=== PATIENT | female | born 1950 | race Caucasian/White ===

== ENCOUNTER 2021-04-28 09:54 | Inpatient (IN) | payer MEDICARE, OTHER, SELFPAY ==
[2021-04-28] VITALS (9 sets, daily range): BP systolic 131–184; BP diastolic 79–105; PULSE 88–120; RESP 15–18; O2SAT 91–97; BMI 21.5
--- NOTE | 2021-04-28 09:55 | CT_ITS ---
WS: [id number] CT HEAD NONCONTRAST HISTORY: POSSIBLE STROKE TECHNIQUE: Contiguous axial imaging performed through the brain in 2.5 mm imaging. Bone and soft tiss ue windows. Sagittal and coronal reformats reviewed. All CT scans at [facility] use at least one of these dose optimization techniques: automated exposure control; mA and/or kV adjustment per pa tient size (includes targeted exams where dose is matched to clinical indication); or iterative recon struction. DLP: 879.20 mGy-cm. COMPARISON: None available. No acute intracranial hemorrhage, midline shift or mass effect. Mild atrophy is symmetric. Prior lacunar infarct in the LEFT baldwin radiata. Decreased attenuation in the posterior limb of the LEFT internal capsule could be a subacute infarct. Tiny lacunar infarct or perivascular space along the inferior RIGHT basal ganglia. Decreased attenuation from microvascular ischemic disease along the insular ribbons and external capsules. Ventricles: Normal size with no hydrocephalus. Scattered calcified plaque within the intracranial carotid arteries. There is mild increased density within the cerebral arteries but this is diffuse and I cannot confirm an acute thrombus within the ce rebral arteries on this examination. CT angiogram to follow. Paranasal sinuses: As visualized are clear. Mastoid air cells: Well pneumatized. Calvarium and scalp: Skull is intact with no soft tissue edema or swelling. CT/CT head wo con* [id number] IMPRESSION: 1. No acute intracranial hemorrhage or edema. 2. Mild atrophy and chronic ischemic disease and prior lacunar infarcts as abo ve. Notified Deangelo Cruz DO at 04/28/2021 10:20 AM.
--- NOTE | 2021-04-28 09:55 | CT_ITS ---
WS: [id number] CT ANGIOGRAM CEREBRAL AND CAROTID ARTERIES HISTORY: POSSIBLE STROKE TECHNIQUE: CT angiogram is performed of the carotid and cerebral arteries. During arterial injection imaging is obtained from the skull vertex to the aortic arch in 1.25 mm imaging. Coronal and sagittal reformats are submitted. Additional multi planar reformats of the carotid and cerebral arteries are submitted, MIP imaging also reviewed. NASCET criteria utilized. [facility] CT [facility] us e at least one of these dose optimization techniques: automated exposure control; mA and/or kV adjust ment per patient size (includes targeted exams where dose is matched to clinical indication); or iter ative reconstruction. CONTRAST: Visipaque 320; 95 mL IV. DLP: 1857.7 mGy.cm COMPARISON: Noncontrast head CT same day. Carotid Angiogram: Right carotid: Common carotid artery: Arises normally from the innominate artery. There is a very small amount of ca lcified plaque at the origin of the common carotid artery. Internal carotid artery: No plaque or stenosis. External carotid artery: Patent. Left carotid: Common carotid artery: Arises at the base of the aorta. No significant stenosis. Internal carotid artery: Sharp band the internal carotid artery with very slight narrowing of the lum en. External carotid artery: Patent. Right vertebral artery: RIGHT vertebral artery is patent and mildly dominant. Left vertebral artery: Unremarkable. Arises normally from the subclavian artery. Subclavian arteries: No stenosis or significant abnormality. Upper thorax: Chronic emphysema. Thyroid gland: RIGHT thyroidectomy. Small subcentimeter nodules in the LEFT remaining thyroid. Osseous structures: Unremarkable. CEREBRAL ANGIOGRAM: Intracranial vertebral arteries: Normal with no significant atherosclerosis. Basilar artery: No significant stenosis or occlusion. No aneurysm. Intracranial Internal carotid arteries: Mild calcified plaque through the cavernous sinuses and supra clinoid carotid arteries. Middle cerebral arteries: Middle cerebral arteries are patent. The RIGHT middle cerebral artery diame ter is slightly greater than the LEFT but there is no thrombus. Good visualization of the M2 and M3 v ertebral arteries. M1 segments are patent. Anterior cerebral arteries and ACOM: Normal. Posterior cerebral arteries and PCOM's: Normal. Dural venous sinuses are normally enhancing. Small caliber LEFT jugular vein. Mastoid air cells: Normal. Paranasal sinuses: Normal. Calvarium: Normal. CT/CT angio headneck* [id number] IMPRESSION: 1. No significant carotid artery stenosis. There is a sharp bend in the mid LE FT extracranial carotid artery but this is a normal anatomic variant. 2. No significant thrombus or narrowing or spasm in the middle cerebral arteri es. No intracranial cerebral artery thrombus.
[2021-04-28] MEDS: hydrocortisone 100 mg/2 mL SDV IVP (10:08)
[2021-04-28] MEDS: diphenhydrAMINE 50 mg/mL SDV 1mL IVP (10:08)
[2021-04-28] MEDS: iodixanol 320 mg/mL 100mL Btl IV (10:15)
--- NOTE | 2021-04-28 10:18 | ECG_ITS ---
[facility] Test Date: 2021-04-28 Pat Name: Kayla Tobar Department: Room: Gender: Female Software Lead: : 1950 Requested By: Deangelo Reina Order Number: [id number] Tati MD: Romel Yoder M.D. Measurements Intervals [place] Rate: 95 P: 72 MN: 167 QRS: -36 QRSD: 90 T: 68 QT: 365 QTc: 460 Interpretive Statements SINUS RHYTHM POSSIBLE RIGHT ATRIAL ENLARGEMENT [0.25mV P-WAVE] LEFT ATRIAL ENLARGEMENT [-0.15mV P-WAVE IN V1/V2] LEFT AXIS DEVIATION [QRS AXIS < -30] POSSIBLE RIGHT VENTRICULAR CONDUCTION DELAY [RSR (QR) IN V1/V2] No previous ECG available for comparison Electronically Signed On 04-28-2021 17:46:55 SAMPLE CHECKER by Romel Yoder M.D. [id number]
[2021-04-28 10:27] LABS: Basophils # 0.1 10^3/uL (0.0-0.1); Basophils % 0.6 %; Hematocrit 50.4 % (37.0-47.0); Hemoglobin 16.8 g/dL (11.5-15.3); Lymphocytes # 1.7 10^3/uL (0.8-4.8); Lymphocytes % 13.5 %; Mean Corpuscular HGB Conc 33.3 g/dL (30.0-36.0); Mean Corpuscular Hemoglobin 29.4 pg (28.0-34.0); Mean Corpuscular Volume 88.1 fl (81-99); Mean Platelet Volume 10.4 fL (7.4-10.4); Monocytes # 0.7 10^3/uL (0.2-0.9); Monocytes % 5.6 %; Neutrophils # 10.16 10^3/uL (1.8-7.7); Neutrophils % 79.9 %; Nucleated Red Blood Cells % 0 %; Platelet Count 394 10^3/cmm (130-400); Red Blood Count 5.72 10^6/uL (4.1-5.3); Red Cell Distribution Width 12.9 % (12.1-15.1); White Blood Count 12.7 10^3/uL (4.0-10.0)
[2021-04-28] MEDS: LORazepam 2 mg/mL INJ 1 mL 1 MG IVP (10:36)
[2021-04-28 10:40] LABS: INR 0.96 (0.8-1.2)
[2021-04-28 10:41] LABS: Partial Thromboplastin Time 36.5 SECONDS (23.9-36.7)
[2021-04-28 10:44] LABS: Alanine Aminotransferase 9 U/L (0-33); Albumin Level 4.6 g/dL (3.5-5.2); Alkaline Phosphatase 140 IU/L (35-105); Anion Gap 18.6 (5-19); Aspartate Amino Transferase 15 U/L (0-32); Blood Urea Nitrogen 14 mg/dL (8-23); Calcium 9.3 mg/dL (8.5-10.5); Carbon Dioxide 24 mmol/L (22-29); Chloride 101 mmol/L (98-107); Globulin 2.6 g/dL (1.3-4.6); Glucose 105 mg/dL (65-115); Osmolality Calculated 291 mOsm/kg (285-295); Potassium 3.6 mmol/L (3.5-5.1); Sodium 140 mmol/L (136-145); Total Bilirubin 0.5 mg/dL (0.15-1.2); Total Protein 7.2 g/dL (6.6-8.7)
--- NOTE | 2021-04-28 11:04 | PC.PHAR ---
pt states she takes no rx medications-pt states sometimes she will take 3 or 4 tabs of aspirin but normally just takes 81mg daily
--- NOTE | 2021-04-28 11:54 | W.ED.NEUROSD ---
HPI - Neuro Symptoms/Deficit General: Chief Complaint: Neuro Symptoms/Deficit Stated Complaint: R SIDED FACIAL DROOP/ R SIDED PARALYSIS Time Seen by Provider: 04/28/21 10:17 History of Present Illness: HPI Narrative: 70-year-old female presents emergency room as a stroke alert. She has right-sided facial droop slurred speech and completely flaccid right arm and leg initially. She is alert and oriented however she has significant dysarthria. Patient told the nurse it began around 4:00 yesterday that she had symptoms initially said she was confused and then could not get up she is found by the family in bed and urine soaked clothes. EMS was called. When I talked to the patient after the CTs were done she told me that his symptoms began on Monday night. Is no family available at this time to verify. Onset (ago): unknown Location: speech, right face, dysarthria, right arm, right leg and ataxia History of same: No Severity: severe Quality: weak Relieving factors: none Exacerbating factors: none Context: gradual onset Associated symptoms: Deny chest pain, cough, diaphoresis, fevers/chills, headache(s), anorexia, malaise, nausea, seizures, short of breath, syncope, tingling, vertigo, vomiting or weakness Treatments Prior to Arrival: none Review of Systems Const: Denies: malaise or diaphoresis ENMT: Denies: throat pain, ear or mastoid pain, nasal discharge or nasal congestion Card: Denies: chest pain or syncope Resp: Denies: dyspnea, productive cough or non-productive cough GI: Denies: nausea or vomiting : Denies: flank pain, difficulty voiding, dysuria, urinary frequency or urinary urgency Skin/Breast: Denies: rash or pruritus Neuro: Denies: headache(s) or vertigo PFS ED PFSH: Medical History (Updated 04/28/21 @ 11:59 by Deangelo Cruz DO) Hypertension NIH stroke score NIHSS: Level Of Consciousness - 1a: 0 Level Of Consciousness Questions - 1b: Both Correct Level Of Consciousness Commands - 1c: Both Correct Best Gaze - 2: Normal Visual Guevara - 3: No Visual Loss Facial Palsy - 4: Partial Paralysis Motor Arm Right - 5: No Movement Motor Arm Left - 5: No Drift Motor Leg Right - 6: No Movement Motor Leg Left - 6: No Drift Limb Ataxia - 7: Present In Two Limbs Sensory - 8: Mild To Moderate Loss Best Language - 9: Mild/Moderate Aphasia Dysarthia - 10: Mild/Moderate Dysarthia Extinction And Inattention - 11: 0 Score: Total Score: 15 Physical Exam Const: GENERAL APPEARANCE: cooperative and comfortable ORIENTATION/CONSCIOUSNESS: Yes awake, Yes oriented to person, Yes oriented to place and Yes oriented to time HENMT: COMMON NORMALS: normocephalic, atraumatic and hearing grossly normal bilaterally HEAD & SCALP: normocephalic and atraumatic Neck/C-Spine: COMMON NORMALS: no JVD Resp: COMMON NORMALS: normal respiratory effort, No retractions, No use of accessory muscles and clear to auscultation bilaterally AUSCULTATION: clear to auscultation bilaterally Cardio: COMMON NORMALS: no JVD, regular rate, regular rhythm and No murmurs present (Cardio) RATE: regular rate RHYTHM: regular rhythm GI: COMMON NORMALS: Soft to palpation and No hepatosplenomegaly present AUSCULTATION: Yes normoactive bowel sounds PALPATION: Yes Soft to palpation, No Tenderness to palpation present (GI), No Guarding due to palpation present (GI) and Yes No hepatosplenomegaly present Extremity: COMMON NORMALS: normal to inspection, capillary refill normal, no clubbing, cyanosis or edema, no calf tenderness and no pedal edema Neuro: SENSORIUM/ORIENTATION: Yes oriented to person, Yes oriented to place and Yes oriented to time OTHER: See NIH score Skin: COMMON NORMALS: no rashes or lesions noted GENERAL SKIN EXAM: no rashes or lesions noted MDM - Neuro Symptoms/Deficit MDM Narrative: Medical decision making narrative: Stroke well outside limits of any intervention CTA did not show any thromboembolism discussed Dr. Doran will admit usual stroke protocols discussed Dr. Silva orders written Lab Data: Labs: Lab Results 04/28/21 04/28/21 04/28/21 09:34 09:34 09:34 WBC 12.7 10^3/uL H 10 ^3/uL (4.0-10.0) RBC 5.72 10^6/uL H 10 ^6/uL (4.1-5.3) Hgb 16.8 g/dL H g/dL (11.5-15.3) Hct 50.4 % H % (37.0-47.0) MCV 88.1 fl fl (81-99) MCH 29.4 pg pg (28.0-34.0) MCHC 33.3 g/dL g/dL (30.0-36.0) RDW 12.9 % % (12.1-15.1) Plt Count 394 10^3/cmm 10^3 /cmm (130-400) MPV 10.4 fL fL (7.4-10.4) Neut % (Auto) 79.9 % % Lymph % (Auto) 13.5 % % [place] % (Auto) 5.6 % % Eos % (Auto) 0.0 % % Baso % (Auto) 0.6 % % Neut # (Auto) 10.16 10^3/uL H 1 0^3/uL (1.8-7.7) Lymph # (Auto) 1.7 10^3/uL 10^3/ uL (0.8-4.8) [place] # (Auto) 0.7 10^3/uL 10^3/ uL (0.2-0.9) Eos # (Auto) 0.0 10^3/uL 10^3/ uL (0.0-0.8) Baso # (Auto) 0.1 10^3/uL 10^3/ uL (0.0-0.1) Nucleated RBC % (a uto) 0 % % Nucleated RBCs # 0.0 /100WBC /100W BC PT 13.10 SECONDS SEC ONDS (12.1-14.9) INR 0.96 (0.8-1.2) APTT 36.5 SECONDS SECO NDS (23.9-36.7) Sodium 140 mmol/L mmol/L (136-145) Potassium 3.6 mmol/L mmol/L (3.5-5.1) Chloride 101 mmol/L mmol/L (98-107) Carbon Dioxide 24 mmol/L mmol/L (22-29) Anion Gap 18.6 (5-19) BUN 14 mg/dL mg/dL (8-23) Creatinine 0.6 mg/dL mg/dL (0.5-0.9) GFR Calculation Not Reportable Glucose 105 mg/dL mg/dL (65-115) Calculated Osmolal ity 291 mOsm/kg mOsm/ kg (285-295) Calcium 9.3 mg/dL mg/dL (8.5-10.5) Total Bilirubin 0.5 mg/dL mg/dL (0.15-1.2) AST 15 U/L U/L (0-32) ALT 9 U/L U/L (0-33) Alkaline Phosphata se 140 IU/L H IU/L (35-105) Total Protein 7.2 g/dL g/dL (6.6-8.7) Albumin 4.6 g/dL g/dL (3.5-5.2) Globulin 2.6 g/dL g/dL (1.3-4.6) Discharge Plan Discharge Patient Disposition: Admitted As Inpatient Clinical Impression: Cerebrovascular accident, Hypertension Condition: Stable Coding Level of Care Code ED Microsoft Exchange Administrator for Jayne Keith
[2021-04-28 12:16] LABS: Add Urine Microscopic? YES; Bilirubin Urine Neg (Negative); Blood Urine 2+ (Negative); Glucose Urine UA Norm (Normal); Ketones Urine 1+ (Negative); Leukocyte Esterase Urine Negative (Negative); Nitrate Urine Negative (Negative); Protein Urine Trace (Negative); Specific Gravity, Urine 1.015 (1.005-1.030); Urine Appearance Clear (CLEAR); Urine Color Yellow (Yellow); Urobilinogen Urine Norm (Negative); pH Urine 6.5 (5-7)
[2021-04-28 12:17] LABS: Add Urine Culture? No; Bacteria Urine TRACE /hpf; Mucus Urine 3+ /hpf; RBC Urine 0-4 /hpf (0-2); Squamous Epithelial Cell Urine 0-4 /hpf (0-5); WBC Urine 0-4 /hpf (0-5)
--- NOTE | 2021-04-28 12:48 | PM.HP ---
Providers/Chief Complaint Admitting Physician: Marques Silva MD Chief Complaint: R SIDED FACIAL DROOP/ R SIDED PARALYSIS History of Present Illness Kayla Tobar is a 70 year old female who presents to the ER today with right sided facial droop and right sided paralysis. She states she woke up on Monday with these symptoms. She lives home alone and has been unable to move since Monday, and she eventually called 911 today when her symptoms did not improve. She is normally on aspirin but did not take it today. She endorses some difficulty swallowing but denies choking on food. She denies chest pain. She woke reports slurred speech as well. In the ER, head CT showed mild plaques and possible left internal capsule subacute infarct. EKG showed right ventricular conduction delay. She was given diphenhydramine, hydrocortisone, and lorazepam in the ER. She is not vaccinated and denies past history of COVID. Review of Systems General: Reports: 10 or more systems reviewed and unremarkable except in HPI and below Const: Denies: fever(s) or chills Eyes: Denies: change in vision ENMT: Denies: throat pain Card: Denies: chest pain Resp: Denies: dyspnea GI: Denies: abdominal pain : Denies: flank pain Musc: Denies: neck pain Skin/Breast: Denies: rash Neuro: Denies: headache(s) Psych: Denies: memory loss Endo: Denies: polyuria Isac/Lymph: Denies: easy bruising All/Imm: Denies: urticaria Medications/Allergies Home Medications Medication Instructions Recorded Confirmed Last Taken Type aspirin [Aspir-81] 81 mg PO DAILY 04/28/21 04/28/21 Unknown History Allergies Allergy/AdvReac Type Severity Reaction Status Date / Time acetaminophen [From Tylenol] Allergy Unknown Verified 04/28/21 11:02 alendronate sodium Allergy Unknown Verified 04/28/21 11:02 [From Fosamax] amitriptyline [From Elavil] Allergy Unknown Verified 04/28/21 11:02 amoxicillin Allergy Unknown Verified 04/28/21 11:02 azithromycin [From Zithromax] Allergy Unknown Verified 04/28/21 11:02 bupropion [From Wellbutrin] Allergy Unknown Verified 04/28/21 11:02 calcitonin Allergy Unknown Verified 04/28/21 11:02 cephalexin [From Keflex] Allergy Unknown Verified 04/28/21 11:02 Cephalosporins Allergy Unknown Verified 04/28/21 11:02 ciprofloxacin [From Cipro] Allergy Unknown Verified 04/28/21 11:02 citalopram [From Celexa] Allergy Unknown Verified 04/28/21 11:02 codeine Allergy Unknown Verified 04/28/21 11:02 cyclobenzaprine Allergy Unknown Verified 04/28/21 11:02 [From Flexeril] etodolac Allergy Unknown Verified 04/28/21 11:02 fluoxetine [From Prozac] Allergy Unknown Verified 04/28/21 11:02 fluvoxamine Allergy Unknown Verified 04/28/21 11:02 gabapentin Allergy Unknown Verified 04/28/21 11:02 ibuprofen [From Advil] Allergy Unknown Verified 04/28/21 11:02 Iodinated Contrast Media Allergy Unknown Verified 04/28/21 11:02 levofloxacin [From Levaquin] Allergy Unknown Verified 04/28/21 11:02 levothyroxine Allergy Unknown Verified 04/28/21 11:02 naproxen Allergy Unknown Verified 04/28/21 11:02 Penicillins Allergy Unknown Verified 04/28/21 11:02 phenelzine [From Nardil] Allergy Unknown Verified 04/28/21 11:02 raloxifene [From Evista] Allergy Unknown Verified 04/28/21 11:02 sertraline [From Zoloft] Allergy Unknown Verified 04/28/21 11:02 Sulfa (Sulfonamide Allergy Unknown Verified 04/28/21 11:02 Antibiotics) Tetracyclines Allergy Unknown Verified 04/28/21 11:02 tizanidine Allergy Unknown Verified 04/28/21 11:02 trazodone Allergy Unknown Verified 04/28/21 11:02 venlafaxine [From Effexor] Allergy Unknown Verified 04/28/21 11:02 all hrt drugs Allergy Unknown Uncoded 04/28/21 11:02 steroids-cortisone shot and Allergy Unknown Uncoded 04/28/21 11:02 creams tricyclic antidepressants Allergy Unknown Uncoded 04/28/21 11:02 PFSH Acute PFSH: Medical History (Updated 04/28/21 @ 13:34 by Marques Silva MD) Hypertension Surgical History (Updated 04/28/21 @ 12:56 by Marques Silva MD) History of thyroid surgery Hx of vertebroplasty Family History (Updated 04/28/21 @ 12:56 by Marques Silva MD) Other CHF (congestive heart failure) Social History (Updated 04/28/21 @ 12:57 by Marques Silva MD) Smoking and tobacco status: current every day smoker cigarettes Number of cigarettes per day: 6-10 Alcohol intake: never Vitals/I&O/Wt Weight last 48 hrs Weight 68.039 kg Physical Exam Narrative: EXAM NARRATIVE: General exam: white female with right sided facial droop, slurred speech HEENT: normocephalic, atraumatic, oropharynx clear Neck: supple, no obvious thyromegaly Cardiovascular: RRR without murmurs Lungs: clear to auscultation bilaterally, no wheezes Abdomen: soft, nontender, nondistended. No obvious hepatosplenomegaly Extremities: no cyanosis or edema, or clubbing. Cap refill brisk Skin: no rash Neuro: right hemiparesis appears dense. Right facial droop. Slurred speech. Emergency department scored her with an NIH of 15 Data : 04/28/21 09:34 04/28/21 09:34 Other data: Head CT showed decreased attenuation in posterior limb of left internal capsule suggestive of subacute infarct. No acute intracranial hemorrhage or edema. Head/neck CTA showed mild calcified plaques in intracranial internal carotid arteries. Urinalysis showed +1 ketones, +2 blood, 0-4 RBC, 0-4 WBC, 0-4 squamous epithelial cells. No evidence of infection. A&P Assessment and plan (1) Right hemiparesis: Consistent with left hemisphere CVA Initiate aspirin, Plavix, and statin Check echocardiogram Order TSH, lipid panel, chest XR, HGBA1C Speech therapy to evaluate for dysphagia PT and OT Will likely need placement for rehabilitation. Allow permissive hypertension She was down for some time. Will check CK. Hydration Status: Acute (2) Tobacco dependency: Encourage smoking abstinence. Status: Acute Additional A&P Information Allow natural . Discussed with patient. Lovenox for DVT prophylaxis Attestations Medical Necessity Statement*: Will need greater than 2 midnight stay for evaluation and treatment of CVA with significant hemiparesis Time Spent in Patient Care: Greater than 35 minutes Coding Level of Care Code Acute Global Chief Experience Officer for Jayne Keith Diagnoses Right hemiparesis G81.91 Tobacco dependency F17.200
--- NOTE | 2021-04-28 13:35 | XR_ITS ---
WS: [id number] Exam: XR chest 1V portable [id number] Date/Time of Exam: 04/28/2021 1:53 PM Reason For Exam: CVA No priors. The lungs are hyperinflated and clear. Normal cardiomediastinal silhouette. No pleural effusion. Mild plaque atelectasis in the left base. Surgical clips partially visualized in the lower right neck. XR/XR chest 1V portable [id number] IMPRESSION: 1. Pulmonary hyperinflation. No acute process noted.
[2021-04-28 14:09] LABS: Basophils # 0.1 10^3/uL (0.0-0.1); Basophils % 0.4 %; Eosinophils % 0.1 %; Hematocrit 49.9 % (37.0-47.0); Hemoglobin 16.7 g/dL (11.5-15.3); Lymphocytes # 1.1 10^3/uL (0.8-4.8); Lymphocytes % 7.9 %; Mean Corpuscular HGB Conc 33.5 g/dL (30.0-36.0); Mean Corpuscular Hemoglobin 29.7 pg (28.0-34.0); Mean Corpuscular Volume 88.6 fl (81-99); Mean Platelet Volume 9.7 fL (7.4-10.4); Monocytes # 0.2 10^3/uL (0.2-0.9); Monocytes % 1.8 %; Neutrophils % 89.6 %; Nucleated Red Blood Cells % 0 %; Platelet Count 366 10^3/cmm (130-400); Red Blood Count 5.63 10^6/uL (4.1-5.3); White Blood Count 13.5 10^3/uL (4.0-10.0)
[2021-04-28 14:36] LABS: Creatine Phosphokinase 311 U/L (26-192); Thyroid Stimulating Hormone 1.23 uIU/mL (0.27-4.20)
[2021-04-28 14:51] LABS: Estmated Average Glucose 108; Hemoglobin A1C 5.4 % (4.0-6.0)
[2021-04-28] MEDS: sodium chloride 0.9% 1,000 ML 75 ML IV (14:56)
[2021-04-28] MEDS: blistex lip oint 7 gm Tube 1 APPLIC TOPICAL (15:17)
[2021-04-28] MEDS: enoxaparin 40 mg/0.4 mL Syringe SUBCUT (18:37)
--- NOTE | 2021-04-28 18:43 | PC.NURSE ---
Pt placed in hospital bed, pt reports increased comfort, coffee and water provided to her daughter at the bedside, no other immediate needs identified, will continue to monitor.
[2021-04-29] VITALS (8 sets, daily range): BP systolic 153–168; BP diastolic 78–110; PULSE 81–93; RESP 16–24; TEMP 36.5–36.9; O2SAT 91–97
[2021-04-29] MEDS: sodium chloride 0.9% 1,000 ML 75 ML IV ×2 (04:28→17:52)
[2021-04-29 04:50] LABS: Basophils # 0.1 10^3/uL (0.0-0.1); Basophils % 0.9 %; Eosinophils # 0.1 10^3/uL (0.0-0.8); Eosinophils % 0.5 %; Hemoglobin 14.8 g/dL (11.5-15.3); Lymphocytes % 24.1 %; Mean Corpuscular HGB Conc 33.6 g/dL (30.0-36.0); Mean Corpuscular Hemoglobin 29.8 pg (28.0-34.0); Mean Corpuscular Volume 88.7 fl (81-99); Monocytes # 0.9 10^3/uL (0.2-0.9); Monocytes % 7.4 %; Neutrophils # 8.25 10^3/uL (1.8-7.7); Neutrophils % 66.8 %; Nucleated Red Blood Cells % 0 %; Platelet Count 340 10^3/cmm (130-400); Red Blood Count 4.96 10^6/uL (4.1-5.3); Red Cell Distribution Width 13.1 % (12.1-15.1); White Blood Count 12.3 10^3/uL (4.0-10.0)
[2021-04-29 05:09] LABS: Anion Gap 17.2 (5-19); Blood Urea Nitrogen 21 mg/dL (8-23); Calcium 8.2 mg/dL (8.5-10.5); Carbon Dioxide 22 mmol/L (22-29); Chloride 106 mmol/L (98-107); Chol HDL Ratio 4.52 mg/dL (0.0-4.40); Cholesterol 190 mg/dL (0-200); Glucose 87 mg/dL (65-115); HDL Cholesterol 42 mg/dL (60-100); LDL Cholesterol Calculated 119 mg/dL (50-129); LDL HDL Ratio 2.83 RATIO (0.00-3.22); Osmolality Calculated 296 mOsm/kg (285-295); Potassium 3.2 mmol/L (3.5-5.1); Sodium 142 mmol/L (136-145); Triglycerides 145 mg/dL (0-150)
--- NOTE | 2021-04-29 06:00 | USCV_ITS ---
Kayla Tobar Age: 70 Gender: F : 1950 Exam Date: 04/29/2021 06:33 Ordering Phys: Marques Silva MD Technologist: CANELO Exam Location: [facility] Indication: CVA BP: 155 / 110 HR: 84 Rhythm: Sinus Technical Quality: Adequate MEASUREMENTS (Male / Female) Normal Values 2D ECHO LV Diastolic Diameter PLAX 3.7 cm 4.2 - 5.9 / 3.9 - 5.3 cm LV Systolic Diameter PLAX 2.4 cm IVS Diastolic Thickness 0.8 cm 0.6 - 1.0 / 0.6 - 0.9 cm IVS Systolic Thickness 1.3 cm LVPW Diastolic Thickness 0.9 cm 0.6 - 1.0 / 0.6 - 0.9 cm LVPW Systolic Thickness 1.3 cm LVOT Diameter 2.0 cm LV Ejection Fraction 2D Teich 64.2 % LV Ejection Fraction MOD 2C 66.3 % LV Ejection Fraction 2C AL 67.3 % LA Diameter 2.8 cm Aorta at Sinotubular Diameter 2.3 cm M-MODE Aortic Annulus Diameter 3.3 cm DOPPLER AV Peak Velocity 101.0 cm/s LVOT Peak Velocity 100.0 cm/s AV Area Cont Eq vti 3.3 cm squared AV Area Cont Eq pk 3.1 cm squared MV Area PHT 4.0 cm squared Mitral E to A Ratio 0.8 MV E' Velocity 36.5 cm/s Mitral E to MV E' Ratio 8.4 Mitral E to LV E' Lateral Ratio 8.2 Mitral E to LV E' Septal Ratio 8.8 TV Peak E Velocity 50.0 cm/s Right Atrial Pressure 3.0 mmHg PV Peak Velocity 85.0 cm/s RV Acceleration Time 0.1 s RV Ejection Time 0.3 s RV AcT/ET 0.4 FINDINGS Left Ventricle Normal left ventricular cavity size. Normal left ventricular systolic function. No regional wall motion abnormalities. Left ventricular ejection fraction is estimated at 60 %. Grade I/IV diastolic dysfunction (abnormal relaxation filling pattern), normal to mildly elevated filling pressures. Right Ventricle The right ventricle is normal in size and function. RVSP could not be calculated due to incomplete tricuspid regurgitation velocity profile. Right Atrium The right atrium is normal in size. Left Atrium The left atrium is normal in size. Mitral Valve Structurally normal mitral valve without significant stenosis or prolapse. There is no mitral regurgitation. Aortic Valve Moderate aortic valve calcification. No aortic valve stenosis. Trace aortic valve regurgitation. Tricuspid Valve Structurally normal tricuspid valve without significant stenosis or regurgitation. Pulmonary artery systolic pressure is normal. Pulmonic Valve Structurally normal pulmonic valve without significant stenosis. There is no pulmonic regurgitation. Pericardium Normal pericardium without effusion. Aorta Normal ascending aorta dimension. CONCLUSIONS 1-Normal left ventricular cavity size. Normal left ventricular systolic function. No regional wall motion abnormalities. Left ventricular ejection fraction is estimated at 60 %. Grade I/IV diastolic dysfunction (abnormal relaxation filling pattern), normal to mildly elevated filling pressures. 2-Moderate aortic valve calcification. No aortic valve stenosis. Trace aortic valve regurgitation. 3-Structurally normal mitral valve without significant stenosis or prolapse. There is no mitral regurgitation. 4-Structurally normal tricuspid valve without significant stenosis or regurgitation. Pulmonary artery systolic pressure is normal. 5-There is no pericardial effusion. 6-There are no prior echocardiogram studies to compare. Guerline Mir MD (Electronically Signed) Final Date: 29 April 2021 18:21 S
[2021-04-29] MEDS: lidocaine 1% 5 ML in potassium chloride premix 100 ML 25 ML IV (09:40)
--- NOTE | 2021-04-29 10:06 | PM.PN ---
Subjective Subjective: Interval history: Kayla feels like her speech is little bit better. Really wants to try some food by mouth. Medications: Reviewed: Yes Vitals/I&O/Wt Last Vital Signs Temp 97.7 F 04/29/21 08:20 Pulse 81 04/29/21 08:20 Resp 16 04/29/21 08:20 BP 168/84 04/29/21 08:20 Pulse Ox 92 04/29/21 08:20 04/28/21 04/29/21 04/29/21 22:59 06:59 14:59 Intake Total 1000 / 1000 Output Total 550 / 550 Balance 1000 / 1000 -550 / -550 Weight last 48 hrs Weight 68.039 kg Physical Exam Narrative: EXAM NARRATIVE: General exam no distress Cardiovascular: RRR without murmurs Lungs: clear to auscultation bilaterally, no wheezes Abdomen: soft, nontender, nondistended. No obvious hepatosplenomegaly Extremities: no cyanosis or edema, or clubbing. Cap refill brisk Neuro: Right hemiparesis noted. Slight amount of movement right hip flexors. Right facial droop improved. Data : 04/29/21 04:45 04/29/21 04:45 A&P Assessment and plan (1) Right hemiparesis: Consistent with left hemisphere CVA continue aspirin, Plavix, and statin await echocardiogram TSH normal, lipid profile with LDL of 119, hemoglobin A1c normal, chest x-ray no infiltrate Speech therapy to evaluate for dysphagia. I did a bedside swallow test today around 745 and she tolerated ice chips without difficulty sitting upright with chin tuck and head midline. Change diet to allow meds and ice chips but await full speech therapy recommendation on initiation of other diet. PT and OT Will likely need placement for rehabilitation. She is greater than 48 hours after the event. Start losartan low-dose CK was checked, not significantly elevated continue hydration no evidence of arrhythmias currently. Status: Acute (2) Tobacco dependency: Encourage smoking abstinence. Status: Acute Additional A&P Information Mild hypokalemia. Supplement. Allow natural . Discussed with patient. Lovenox for DVT prophylaxis Attestations Medical Necessity Statement*: Needs continued hospitalization for evaluation, therapies secondary to significant CVA. Coding Level of Care Code Acute Manager Cardiac Cath for Jayne Keith Diagnoses Right hemiparesis G81.91 Tobacco dependency F17.200
[2021-04-29] MEDS: clopidogrel 75 mg Tablet PO (14:17)
[2021-04-29] MEDS: losartan 50 mg Tablet 25 MG PO (14:17)
[2021-04-29] MEDS: aspirin 81 mg EC Tablet PO (14:18)
--- NOTE | 2021-04-29 14:30 | PC.NURSE ---
Dr. Silva notified this nurse to attempt scheduled morning medication again since speech therapy was completed and patients diet was advanced, see MAR for further details.
[2021-04-29] MEDS: enoxaparin 40 mg/0.4 mL Syringe SUBCUT (17:52)
[2021-04-29] MEDS: atorvastatin 40 mg Tablet 20 MG PO (20:48)
[2021-04-30] VITALS (9 sets, daily range): BP systolic 150–174; BP diastolic 75–95; PULSE 18–87; RESP 16–19; TEMP 36.4–36.9; O2SAT 92–94
[2021-04-30 05:30] LABS: Anion Gap 16.4 (5-19); Blood Urea Nitrogen 18 mg/dL (8-23); Calcium 7.9 mg/dL (8.5-10.5); Carbon Dioxide 21 mmol/L (22-29); Chloride 106 mmol/L (98-107); Glucose 71 mg/dL (65-115); Osmolality Calculated 290 mOsm/kg (285-295); Potassium 3.4 mmol/L (3.5-5.1); Sodium 140 mmol/L (136-145)
[2021-04-30] MEDS: sodium chloride 0.9% 1,000 ML 75 ML IV (06:48)
--- NOTE | 2021-04-30 08:54 | PM.PN ---
Documented by User: AUSTIN Goode STDNT 04/30/21 09:03 Subjective Subjective: Interval history: Kayla says she has a headache this morning but would only like aspirin for it rather than Tylenol. She was able to sip some water and coffee. Vitals/I&O/Wt Last Vital Signs Temp 97.7 F 04/30/21 07:38 Pulse 86 04/30/21 07:38 Resp 16 04/30/21 07:38 BP 161/84 04/30/21 07:38 Pulse Ox 92 04/30/21 07:38 04/29/21 04/30/21 04/30/21 22:59 06:59 14:59 Intake Total 1240 / 1585 970 / 2555 Output Total 300 / 850 600 / 1450 Balance 940 / 735 370 / 1105 Weight last 48 hrs Weight 68.039 kg Physical Exam Narrative: EXAM NARRATIVE: General: in no acute distress, sitting up drinking liquids, speech improving HEENT: normocephalic, atraumatic Cardiovascular: RRR without murmurs Lungs: clear, no wheezing Abdomen: soft, nondistended, nontender Extremities: no cyanosis, clubbing, or edema Neuro: right hemiparesis noted, right facial droop improving Data : 04/29/21 04:45 04/30/21 04:44 Other data: Echo on 04/29/21 showed LVEF 60% with grade 1/4 diastolic dysfunction A&P Additional A&P Information (1) Right hemiparesis: Consistent with left hemisphere CVA Continue aspirin, Plavix, and statin Echo showed LVEF 60% with grade 1/4 diastolic dysfunction TSH normal, lipid profile with LDL of 119, hemoglobin A1c normal, chest x-ray no infiltrate, CK not significantly elevated Advance diet to soft mechanical diet PT and OT Will likely need placement for rehabilitation. Low-dose losartan initiated Continue hydration No evidence of arrhythmias currently. Status: Acute (2) Tobacco dependency: Encourage smoking abstinence. Status: Acute Mild hypokalemia yesterday which was supplemented with IV potassium. Resolved today. Allow natural . Discussed with patient. Lovenox for DVT prophylaxis Coding Level of Care Code Acute Window Air Conditioner Installer for Chg Fwd Documented by User: Marques Silva MD 04/30/21 09:23 Subjective Subjective: Interval history: Agree with above, no changes Medications: Reviewed: Yes Data : 04/29/21 04:45 04/30/21 04:44 A&P Additional A&P Information Agree with above. No changes needed. We will supplement potassium orally today. It is 3.4. Trying to arrange for rehabilitation. We will reduce IV fluids drastically. No need for laboratory tomorrow Attestations Medical Necessity Statement*: Needs continued hospitalization for close monitoring, rehabilitation following CVA. Coding Level of Care Code Acute Window Air Conditioner Installer for Jayne Keith
[2021-04-30] MEDS: clopidogrel 75 mg Tablet PO (08:58)
[2021-04-30] MEDS: aspirin 81 mg EC Tablet PO (08:58)
[2021-04-30] MEDS: losartan 50 mg Tablet 25 MG PO (08:58)
[2021-04-30] MEDS: potassium chloride ER 20 mEq Tablet 40 MEQ PO (09:05)
[2021-04-30 11:43] LABS: Glucose Point of Care 76 mg/dL (70-110)
[2021-04-30 11:43] LABS: Glucose Point of Care 65 mg/dL (70-110)
--- NOTE | 2021-04-30 14:11 | PC.CHAP ---
Pastoral Care Encounter/Spiritual Assessment Type of Contact [] Declined diesel technician visit [] Patient/Family/Request visit [] Outpatient visit [xx] Follow-up visit [] Physician referral [] Code/Alert [xx] Routine visit [] Staff referral [] Actively dying [] Patient sleeping [] Family support [] [] Out of room [] Palliative care [] [] Receiving care in room [] Pre-surgical visit [] Trauma [] Long length of stay [] ICU visit [] Other: Relational/Emotional Strength [xx] Patient feels connected with others/family/visitors/staff [] Distress [] Loneliness/isolation [] Abandonment Spirituality of Patient [xx] Person of Jackie [] Attends Episcopalian of their Jackie [xx] Believes in Prayer [xx] Reads Bible or Rastafarian materials [] There are Spiritual issues to be addressed Clerical Warehouse Worker Interventions [xx] Prayer [xx] Active listening [xx] Non-anxious presence [xx] Spiritual/emotional support [] Crisis/trauma care [] Spiritual counseling [] Bereavement support [] Provided bereavement packet [] Provided Bible/devotional materials [] Provided toy/stuffed animal, coloring book to patient or family member [] Provided Communion [] Anointing/[place] [] Salvation [xx] Completed spiritual assessment [] Other: Impact on Illness or Injury [] Angry [] Fearful [] Anxious [xx] Often cries [] Exhaustion [] Unable to work [] Unable to attend congregational [] Unable to walk/stand [] Unable to read [] Unable to drive [] Unable to eat/drink [] Unable to sleep [] Unable to be with family [] Patient intubated [] Other: Summary Patient feels better. She is being sent to rehab [facility]. She had a stroke but God allowed her to keep her voice. She was wondering shy the stroke occurred and why her voice remained and what is God's purpose now? Clerical Warehouse Worker suggested she could be God's voice to new people she will encounter in rehab location and perhaps she is to witness to them of God's love and salvation through Herson Ajit. This would never happen without the stroke occurring. She said she hadn't thought about it from that perspective yet. She smiled, her eyes twinkled and she said That's it! That's God's plan for me! I will do it! She now has a stronger will to live and go forward in face of life-changing adversity. Time spent with patient 20 minutes
[2021-04-30 16:39] LABS: Adenovirus Not Detected (NOT DETECT); Chlamydia Pneumoniae Not Detected (NOT DETECT); Coronavirus 229E,HKU1,NL63,OC4 Not Detected (NOT DETECT); Human Metapneumovirus Not Detected (NOT DETECT); Human Rhinovirus/Enterovirus Not Detected (NOT DETECT); Influenza A Not Detected (NOT DETECT); Influenza A H1 Not Detected (NOT DETECT); Influenza A H1-2009 Not Detected (NOT DETECT); Influenza A H3 Not Detected (NOT DETECT); Influenza B Not Detected (NOT DETECT); Mycoplasma Pneumoniae Not Detected (NOT DETECT); Parainfluenza Virus Type 1 Not Detected (NOT DETECT); Parainfluenza Virus Type 2 Not Detected (NOT DETECT); Parainfluenza Virus Type 3 Not Detected (NOT DETECT); Parainfluenza Virus Type 4 Not Detected (NOT DETECT); Respiratory Syncytial Virus A Not Detected (NOT DETECT); Respiratory Syncytial Virus B Not Detected (NOT DETECT); SARS-COV-2 Not Detected (NOT DETECT)
[2021-04-30] MEDS: enoxaparin 40 mg/0.4 mL Syringe SUBCUT (17:00)
[2021-04-30] MEDS: atorvastatin 40 mg Tablet PO (20:11)
[2021-05-01] VITALS (15 sets, daily range): BP systolic 132–174; BP diastolic 76–91; PULSE 75–92; RESP 16–18; TEMP 36.4–36.9; O2SAT 92–94
[2021-05-01] MEDS: losartan 50 mg Tablet 25 MG PO (08:49)
[2021-05-01] MEDS: aspirin 81 mg EC Tablet PO (08:51)
[2021-05-01] MEDS: clopidogrel 75 mg Tablet PO (08:51)
--- NOTE | 2021-05-01 09:55 | PM.PN ---
Subjective Subjective: Interval history: Kayla reports she is doing well. She is eager to get to rehabilitation. No complaints today. Medications: Reviewed: Yes Vitals/I&O/Wt Last Vital Signs Temp 98.1 F 05/01/21 08:00 Pulse 86 05/01/21 08:00 Resp 16 05/01/21 08:00 BP 167/82 05/01/21 08:49 Pulse Ox 92 05/01/21 07:25 04/30/21 05/01/21 05/01/21 22:59 06:59 14:59 Intake Total 240 / 616.25 60 / 676.25 Output Total 750 / 750 750 / 1500 Balance -510 / -133.75 -690 / -823.75 Physical Exam Narrative: EXAM NARRATIVE: General exam no distress Cardiovascular: RRR without murmurs Lungs: clear to auscultation bilaterally, no wheezes Abdomen: soft, nontender, nondistended. No obvious hepatosplenomegaly Extremities: no cyanosis or edema, or clubbing. Cap refill brisk Neuro: Right hemiparesis noted. Slight amount of movement right hip flexors. No overall changes. Data : 04/29/21 04:45 04/30/21 04:44 A&P Assessment and plan (1) Right hemiparesis: Consistent with left hemisphere CVA continue aspirin, Plavix, and statin Echo demonstrated EF of 60%, 1/4 diastolic dysfunction. TSH normal, lipid profile with LDL of 119, hemoglobin A1c normal, chest x-ray no infiltrate Speech therapy to evaluate for dysphagia. I did a bedside swallow test today around 745 and she tolerated ice chips without difficulty sitting upright with chin tuck and head midline. Change diet to allow meds and ice chips but await full speech therapy recommendation on initiation of other diet. PT and OT Will need placement Low-dose losartan initiated. Blood pressures acceptable currently CK was checked, not significantly elevated continue hydration no evidence of arrhythmias currently. Status: Acute (2) Tobacco dependency: Encourage smoking abstinence. Status: Acute Additional A&P Information Lovenox for DVT prophylaxis No need for laboratory tomorrow Remove Cutler today. Attestations Medical Necessity Statement*: Needs continued hospitalization for close monitoring following CVA with continued need for rehabilitation. Coding Level of Care Code Acute Supervisor Assembly And Packing for Jayne Keith Diagnoses Right hemiparesis G81.91 Tobacco dependency F17.200
--- NOTE | 2021-05-01 10:43 | PC.SOCIAL ---
IMM update IMM updated with patient. Verbalized an understanding. Copy Pg 2 provided. Initalled, dated, timed, and placed in chart.
[2021-05-01] MEDS: potassium chloride ER 20 mEq Tablet 40 MEQ PO (11:09)
[2021-05-01] MEDS: enoxaparin 40 mg/0.4 mL Syringe SUBCUT (17:37)
[2021-05-01] MEDS: atorvastatin 40 mg Tablet PO (20:23)
[2021-05-02] VITALS (7 sets, daily range): BP systolic 143–158; BP diastolic 81–89; PULSE 75–93; RESP 17–18; TEMP 36.5–36.7; O2SAT 92–94
[2021-05-02] MEDS: losartan 50 mg Tablet PO (08:00)
[2021-05-02] MEDS: aspirin 81 mg EC Tablet PO (08:01)
[2021-05-02] MEDS: clopidogrel 75 mg Tablet PO (08:01)
--- NOTE | 2021-05-02 09:08 | P.DS_ITS ---
Discharge Providers Date of Admission: 04/28/21 12:25 Date of Discharge: May 02, 2021 Attending Provider at Admission: Marques Silva MD Attending Provider at Discharge: Marques Silva MD Diagnoses at Discharge Discharge Diagnosis (1) Right hemiparesis: Status: Acute (2) Tobacco dependency: Status: Acute Reason for Visit Reason for Visit: R SIDED FACIAL DROOP/ R SIDED PARALYSIS Hospital Course Hospital Course Kayla is a 70-year-old white female who presented from home with history of right hemiparesis and right facial droop. She was diagnosed with a CVA. She was not a candidate for tPA or thrombectomy. CTA head and neck demonstrated some scattered atherosclerotic disease but no thrombus. CT head demonstrated decreased attenuation internal capsule, posterior limb left side consistent with subacute CVA. She was placed in the hospital on aspirin, Plavix, statin. She was monitored on telemetry which demonstrated no arrhythmias. Echocardiogram was performed demonstrated preserved EF, 1/4 diastolic dysfunction, trace aortic valve regurgitation and no thrombus. During her hospital stay it was apparent she needed rehabilitation and this was set up and inpatient rehabilitation facility in [place]. She will follow-up with neurology in 2 weeks. Consideration of further evaluation of CVA could occur at that time. She tolerates a regular diet. Physical Exam Narrative: EXAM NARRATIVE: General exam no distress Neck is supple Cardiovascular regular rate and rhythm without murmur Lungs clear Abdomen is soft Extremities no cyanosis clubbing or edema Neuro dense right hemiparesis noted Discharge Data Data Completed and Pending: Completed Studies During Hospitalization Category Date Time Status CT head wo con* [id number] 0450 Stat Cat Scan 04/28/21 09:55 Completed CTA head neck [CT angio headneck* [id number]] Urgent Cat Scan 04/28/21 09:55 Completed XR chest 1V rebecca ble [id number] Routine Exams 04/28/21 13:35 Completed CV. echo complete * [id number] Routine Ultrasound 04/29/21 06:00 Completed Vitals: Last Vital Signs Temp 97.8 F 05/02/21 07:41 Pulse 83 05/02/21 07:41 Resp 18 05/02/21 07:41 BP 156/81 05/02/21 08:00 Pulse Ox 92 05/02/21 07:41 Discharge Plan Discharge Patient Disposition: Xfer Inpatient Rehab Fac Condition: Stable Prescriptions: New atorvastatin 40 mg Tablet 40 mg PO BEDTIME Qty: 30 RF: 0 clopidogrel 75 mg Tablet 75 mg PO DAILY Qty: 30 RF: 0 losartan 50 mg Tablet 50 mg PO DAILY Qty: 30 RF: 0 Continued Aspir-81 81 mg Tablet,Delayed Release (Dr/Ec) 81 mg PO DAILY RF: 0 Discharge Orders: Discharge Order (Routine); Ordered 05/02/21 Ordered By: Marques Silva Referrals: Carolyn Doran MD [Physician] - 2 weeks Discharge Diet: Cardiac Discharge Activity: Increase activity as tolerated Activity Restrictions/Additional Instructions: Take all medicine as prescribed Return for any worsening Discharge Attestations Time Spent in Discharge Care*: greater than 30 min Quality Metrics Clinical Quality Measures During this hospital stay, did patient experience: Stroke Contraindication to Antithrombotic: Antithrombotic prescribed Contraindication to Anticoagulation: Other (Not indicated) Contraindication to Statin: Statin prescribed Reason stroke education not provided: Stroke education provided to patient Coding Level of Care Code Acute g FW DC note Diagnoses Right hemiparesis G81.91 Tobacco dependency F17.200
--- NOTE | 2021-05-02 13:02 | PC.NURSE ---
report was called to [facility], Tari Friedman RN took report at [id number]
== END 2021-05-02 12:15 | DRG 65 ==
LOC: ER 11:59 → ER IP 12:26 → MEDSURG 04-29 07:37
PROVIDERS: Admitting Provider Internal Medicine; Emergency Provider Family Medicine; Visit Provider Internal Medicine
DX: I61.2 Nontraumatic intracerebral hemorrhage in hemisphere, unspecified (principal); G81.91 Hemiplegia, unspecified affecting right dominant side; R47.1 Dysarthria and anarthria; R29.810 Facial weakness; I10 Essential (primary) hypertension; R29.715 NIHSS score 15; F17.210 Nicotine dependence, cigarettes, uncomplicated; E87.6 Hypokalemia; Z66 Do not resuscitate; I25.10 Atherosclerotic heart disease of native coronary artery without angina pectoris; Z79.82 Long term (current) use of aspirin
CPT/HCPCS: 12345; 36415; 36416; 70450; 70496; 70498; 71045; 80048; 80053; 80061; 81001; 82550; 82962; 83036; 84443; 85025; 85610; 85730; 87635; 92507; 92523; 92526; 92610; 93005; 93306; 96365; 96372; 96375; 97110; 97112; 97116; 97161; 97165; 97530; 99285; J1200; J1650; J1720; J2060; J3480; J7030; Q9967

== ENCOUNTER 2021-08-10 12:24 | Emergency (ER) | payer MEDICARE, OTHER, SELFPAY ==
[2021-08-10 12:25] VITALS: BP 148/87; PULSE 82; RESP 16; TEMP 36.8; O2SAT 95
[2021-08-10 12:31] VITALS: BP 148/87; PULSE 80; RESP 15; O2SAT 95
--- NOTE | 2021-08-10 12:39 | ED_ITS ---
HPI - Neuro Symptoms/Deficit General: Chief Complaint: Weakness Stated Complaint: GENRALIZED WEAKNESS R SIDE Time Seen by Provider: 08/10/21 12:38 Source: patient Mode of arrival: ambulatory Limitations: no limitations History of Present Illness: 71 yo female present to the ER via ambulance sent by her home physical therapist. The therapist felt the patietns weakness on the right arm and leg. She has not noted any increased sympotms with her speech hearing or vision. She cerrato had residual R arm and leg weakness from richard previous stroke. Onset (ago): day(s) (1) Location: speech, right face, right arm and right leg History of same: Yes Severity: mild Quality: weak Relieving factors: none Exacerbating factors: none Associated symptoms: Deny chest pain, cough, diaphoresis, fevers/chills, headache(s), anorexia, malaise, nausea, seizures, short of breath, syncope, tingling, vertigo, vomiting or weakness Treatments Prior to Arrival: none Review of Systems Const: Denies: fever(s), chills, malaise or diaphoresis ENMT: Denies: throat pain, ear or mastoid pain, nasal discharge or nasal congestion Card: Denies: chest pain or syncope Resp: Denies: dyspnea, productive cough or non-productive cough GI: Denies: abdominal pain, nausea or vomiting : Denies: flank pain, difficulty voiding, dysuria, urinary frequency or ur inary urgency Skin/Breast: Denies: rash or pruritus Neuro: Reports: weakness in extremities and lack of coordination (R leg); Denies: headache(s) or vertigo PFSH ED PFSH: Medical History Hypertension Surgical History History of thyroid surgery Hx of vertebroplasty Family History Other CHF (congestive heart failure) Social History Smoking and tobacco status: current every day smoker cigarettes Alcohol intake: never NIH stroke score NIHSS: Level Of Consciousness - 1a: 0 Level Of Consciousness Questions - 1b: Both Correct Level Of Consciousness Commands - 1c: Both Correct Best Gaze - 2: Normal Visual Guevara - 3: No Visual Loss Facial Palsy - 4: Normal Motor Arm Right - 5: Drift Motor Arm Left - 5: No Drift Motor Leg Right - 6: Drift Motor Leg Left - 6: No Drift Limb Ataxia - 7: Present In One Limb Sensory - 8: Normal Best Language - 9: No Aphasia Dysarthia - 10: Normal Extinction And Inattention - 11: 0 Score: Total Score: 3 Physical Exam Const: COMMON NORMALS: no acute distress GENERAL APPEARANCE: cooperative and comfortable ORIENTATION/CONSCIOUSNESS: Yes awake, Yes oriented to person, Yes oriented to place and Yes oriented to time HENMT: COMMON NORMALS: normocephalic, atraumatic and hearing grossly normal bilaterally HEAD & SCALP: normocephalic and atraumatic Neck/C-Spine: COMMON NORMALS: no JVD Resp: COMMON NORMALS: normal respiratory effort, No retractions, No use of accessory muscles and clear to auscultation bilaterally AUSCULTATION: clear to auscultation bilaterally Cardio: COMMON NORMALS: no JVD, regular rate, regular rhythm and No murmurs present (Cardio) RATE: regular rate RHYTHM: regular rhythm GI: COMMON NORMALS: Soft to palpation and No hepatosplenomegaly present AUSCULTATION: Yes normoactive bowel sounds PALPATION: Yes Soft to palpation, No Tenderness to palpation present (GI), No Guarding due to palpation present (GI) and Yes No hepatosplenomegaly present Extremity: COMMON NORMALS: normal to inspection, capillary refill normal, no clubbing, cyanosis or edema, no calf tenderness and no pedal edema Neuro: SENSORIUM/ORIENTATION: Yes oriented to person, Yes oriented to place and Yes oriented to time Skin: COMMON NORMALS: no rashes or lesions noted GENERAL SKIN EXAM: no rashes or lesions noted Course Vital Signs: Vital signs: Vital Signs Temperature 98.2 F 08/10/21 12:25 Pulse Rate 80 08/10/21 12:31 Respiratory Rate 15 08/10/21 12:31 Blood Pressure 148/87 08/10/21 12:31 Pulse Oximetry 95 08/10/21 12:31 MDM - Neuro Symptoms/Deficit Medical Decision Making CT head shows no acute changes. Her symptoms are still rpesent from richard previous CVA. Return to home and continue her hoenm therapy. Medical Records I reviewed the patient's medical records. Lab Data I reviewed the patient's lab results. Radiology Impressions Head CT 08/10/21 12:40 IMPRESSION: 1. No evidence of intracranial hemorrhage or mass effect. 2. Moderate small vessel changes with moderate parenchymal volume loss. 3. Chronic infarcts in the LEFT periventricular white matter and basal ganglia unchanged from previous. 4. No acute intracranial findings. Discharge Plan Discharge Patient Disposition: Home Clinical Impression: Cerebrovascular accident Condition: Stable Prescriptions: No Action aspirin 81 mg Tablet,Delayed Release (Dr/Ec) 81 mg PO QAM 0RF atorvastatin 40 mg Tablet 40 mg PO BEDTIME Qty: 30 0RF losartan 50 mg tablet 50 mg PO QAM 0RF clopidogrel 75 mg tablet 75 mg PO QAM 0RF Discharge Orders: Discharge ED (Routine); Ordered 08/10/21 Ordered By: Deangelo Cruz Discharge Diet: Usual diet Discharge Activity: Resume usual activity Patient Instructions: Opioid Safety Activity Restrictions/Additional Instructions: Continue therapies with [facility]. Follow up with your primary care physician as needed. Coding Level of Care Code ED Sheet Pile Hammer Operator for Jamesg Fwd Exam Comprehensive
--- NOTE | 2021-08-10 12:40 | CT_ITS ---
WS: [id number] CT HEAD TECHNIQUE: Noncontrast CT of the head obtained from the skullbase to the vertex. CLINICAL INFORMATION: R sided weakness COMPARISON: April 28, 2021 DLP: 978.[address] scans at [facility] use at least one of these dose optimization techniques: automated e xposure control; mA and/or kV adjustment per patient size (includes targeted exams where dose is matc hed to clinical indication); or iterative reconstruction. FINDINGS: No evidence of intracranial hemorrhage or mass effect. Ventricular system and basal cisterns are marcano nt. Moderate small vessel changes with moderate parenchymal volume loss. Chronic infarcts in the LEFT periventricular white matter and basal ganglia unchanged from previous. Intracranial vascular calcif ication. No extra-axial fluid collections. No evidence of mass or mass effect. Paranasal sinuses and mastoid air cells are well aerated. .Normal visualized soft tissues. CT/CT head wo con* [id number] IMPRESSION: 1. No evidence of intracranial hemorrhage or mass effect. 2. Moderate small vessel changes with moderate parenchymal volume loss. 3. Chronic infarcts in the LEFT periventricular white matter and basal ganglia unchanged from previous. 4. No acute intracranial findings.
== END 2021-08-10 16:58 | disposition home or self-care (01) ==
PROVIDERS: Emergency Provider Family Medicine
DX: I69.351 Hemiplegia and hemiparesis following cerebral infarction affecting right dominant side (principal); I10 Essential (primary) hypertension; F17.210 Nicotine dependence, cigarettes, uncomplicated; Z79.02 Long term (current) use of antithrombotics/antiplatelets; Z79.82 Long term (current) use of aspirin
CPT/HCPCS: 70450; 99283

== ENCOUNTER → 2022-09-22 10:21 | Outpatient (BNVA) | payer OTHER, SELFPAY | PROVIDERS: Visit Provider Thoracic Surgery (Cardiothoracic Vascular Surgery) | DX: I73.9 Peripheral vascular disease, unspecified (principal); F17.210 Nicotine dependence, cigarettes, uncomplicated | CPT/HCPCS: 99203 ==

== ENCOUNTER 2022-09-29 09:13 | Outpatient (CLI) | payer OTHER, SELFPAY ==
--- NOTE | 2022-09-29 09:23 | CT_ITS ---
WS: [id number] CT chest wo con [id number] HISTORY: LYMPHADENOPATHY- DIFFUSE TECHNIQUE: Axial imaging performed through the thorax. Coronal and sagittal reformats are submitted. All CT scans at [facility] use at least one of these dose optimization techniques: automated exposure control; mA and/or kV adjustment per patient size (includes targeted exams where dose is mat ched to clinical indication); or iterative reconstruction. CONTRAST: No DLP: 176.51 mGy.cm COMPARISON: Chest radiograph 04/28/2021. CT neck 01/03/2012 Lungs and central airway: Irregular opacification RIGHT upper lobe is stable since 2011. Mild interst itial thickening at the lung bases. 6 mm nodule LEFT lung base. Mild increase pulmonary expansion. Pleura: Normal. No pleural effusion. Heart and pericardium: Normal size heart with no pericardial effusion. Mediastinum and riri: No mediastinum or hilar adenopathy. Vessels: Mild atherosclerosis aorta. Mild prominence of the great vessels. Subcentimeter lymph nodes anterior mediastinum. Chest wall and lower neck: Bilateral breast implants. Upper abdomen: No acute abnormalities. Mild thickening of the LEFT adrenal gland. Osseous structures: Mild anterior wedging of T7. CT/CT chest wo con [id number] IMPRESSION: 1. No mediastinal or hilar lymphadenopathy. 2. 6 mm noncalcified nodule at the LEFT lung base. Recommend follow-up noncont rast chest CT in 6 months. 3. Chronic emphysema. 4. Long-term stability irregular opacification RIGHT upper lobe.
== END 2022-09-29 09:14 | disposition home or self-care (01) ==
PROVIDERS: PCP Nurse Practitioner; Visit Provider Nurse Practitioner
DX: R59.1 Generalized enlarged lymph nodes (principal); R91.1 Solitary pulmonary nodule; J43.9 Emphysema, unspecified
CPT/HCPCS: 71250

== ENCOUNTER 2022-10-07 09:59 | Outpatient (CLI) | payer OTHER, SELFPAY ==
--- NOTE | 2022-10-07 10:15 | USCV_ITS ---
Kayla Tobar Age: 72 Gender: F : 1950 Exam Date: 10/07/2022 10:49 Ordering Phys: Kwame Pal MD (Andy) ([email or web address] [email or web address]) Technologist: CT Exam Location[place] [facility] [place] Indication: CYANOSIS Risk Factors: Previous Vascular Surgery: RIGHT LEFT BP: 130.0 / 69.00 BP: 125.0/ 71.00 0 0 Waveform Velocity (cm/s) Velocity (cm/s) Waveform Triphasic 66.3 Iliac Prox 53.4 Triphasic Triphasic 55.2 Iliac Mid 62.1 Triphasic Triphasic 56.2 Iliac Distal 51.0 Triphasic Biphasic 69.6 BMX RIDER 57.1 Triphasic Biphasic 65.4 SFA Prox 63.9 Biphasic Biphasic 61.8 SFA Mid 73.8 Biphasic Biphasic 72.7 SFA Dist 70.3 Biphasic Biphasic 49.1 POP 74.5 Biphasic Biphasic 34.5 MANAGER R D 48.9 Biphasic Biphasic 34.4 DPA 68.9 Biphasic 1.0 FABIOLA 1.0 FINDINGS Intimal thickening and minimal plaques in the iliac and femoral arteries bilaterally. Resting FABIOLA 1.0 bilaterally. CONCLUSIONS Intimal thickening and minimal plaques in the iliac and femoral arteries bilaterally. Normal resting ABIs bilaterally, suggesting no significant arterial obstruction Dr Romel Yoder MD [facility] (Electronically Signed) Final Date: 08 October 2022 07:21 S
== END 2022-10-07 10:00 | disposition home or self-care (01) ==
LOC: RAD 10:00
PROVIDERS: PCP Nurse Practitioner; Visit Provider Thoracic Surgery (Cardiothoracic Vascular Surgery)
DX: I70.203 Unspecified atherosclerosis of native arteries of extremities, bilateral legs (principal)
CPT/HCPCS: 93925